=== PATIENT | female | born 1940 | race Caucasian/White ===

== ENCOUNTER → 2017-03-01 | Outpatient (CLI) | payer MEDICARE, OTHER ==
[~2017-03-01] MED LIST: ASPIRIN EC81 MG PO; CALTRATE 600 WI1 TAB PO; CYMBALTA60 MG PO; LEVOTHROID (S100 MCG PO; LOPRESSOR50 MG PO; METAMUCIL CAPSU1 CAP PO; MIRALAX17 GM PO; NEXIUM40 MG PO; PLAQUENIL200 M1 PO; THERA-VITE W/ B1 TAB PO; TYLENOL EXTRA500 MG PO; ULTRAM50 MG PO; VITAMIN D1000 UNIT PO; ZOCOR10 MG PO
--- NOTE | ~2017-03-01 | PUL ---
[facility] 77 Y [address] ROOM: [place] [address] LOCATION: [facility] [place] ADMIT DATE: 03/01/2017 Pulmonary DISCHARGE DATE: FAMILY PHYSICIAN: Lito Lopez MD ATTENDING PHYSICIAN: Lito Lopez NAME OF PROCEDURE: Sleep study DATE OF PROCEDURE: 03/01/17 TECH: SHEREE Hwang TEST #: [facility] [place] [id number] MEDICAL HISTORY: The patient is a 77-year-old with a history of daytime sleepiness and snoring. SLEEP STAGE SUMMARY: The patient was studied for 497 minutes of which she slept 427 minutes. She fell asleep in 17 minutes and slept for 86% of the night. RESPIRATORY SUMMARY: Oxygen saturations ranged from 83-93%. There were 409 apneas and 28 hypopneas for an apnea/hypopnea index severely elevated at 61 events per hour. The majority of the events occurred too late in the study to allow for initiation of CPAP. EKG SUMMARY: No dysrhythmias were noted. LIMB MOVEMENT SUMMARY: Occasional periodic limb movements were noted. Clinical significance is unclear in the setting of severe obstructive sleep apnea. ASSESSMENT: Severe obstructive sleep apnea. PLAN: Would consider a repeat study for initiation and titration of CPAP. Patient will receive results from the ordering provider. RENITA ANNE MD [facility]/ PATIENT'S NAME: BRIGIDO DODSON [facility] AGE: 77 Y [address] ROOM: [place] [address] LOCATION: [facility] ADMIT DATE: 03/01/2017 Pulmonary DISCHARGE DATE: FAMILY PHYSICIAN: Lito Lopez MD ATTENDING PHYSICIAN: Lito Lopez /[id number] dtt: 03/12/17 1017 , Renita Anne dtd: 03/04/17 1305
== END | disposition disaster alternative care site (69) ==
LOC: GSLP 20:16
DX: G47.34 Idiopathic sleep related nonobstructive alveolar hypoventilation (principal); G47.33 Obstructive sleep apnea (adult) (pediatric)

== ENCOUNTER → 2017-03-24 | Outpatient (CLI) | payer MEDICARE, OTHER ==
--- NOTE | ~2017-03-24 | PUL ---
PATIENT'S NAME: BRIGIDO DODSON [facility] AGE: 77 Y [address] ROOM: [place] [address] [facility] ADMIT DATE: 03/24/2017 Pulmonary DISCHARGE DATE: FAMILY PHYSICIAN: Lito Lopez MD ATTENDING PHYSICIAN: Lito Lopez NAME OF PROCEDURE: Sleep Study PROCEDURE DATE: 03/24/17 TECH: SHEREE Hwang TEST #: [facility]# [id number] TECHNICAL PARAMETERS: The patient was studied using [employer] 10/20 measuring system. While the patient was studied, there was continuous monitoring of EEG (8 leads), EOG (2 leads), EKG (3 leads), submental EMG (3 leads), tibial (4 leads), respiratory inductive plethysmography (RIP) for thoracic and abdominal effort, oral and nasal airflow with a thermocouple and pressure transducer, and oximetry. The commercial maintenance technician also performed visual and auditory observations noting things like body position, patient's status, breath sounds, artifact, snoring level and patient comments. Continuous sound was monitored using a 2-way speaker system and video monitoring was performed using an infrared camera. Review of the entire study was performed epoch by epoch utilizing a single epoch and multiple epoch capability sleep system. MEDICAL HISTORY: The patient is a 77-year-old woman with daytime sleepiness and snoring. SLEEP STAGE SUMMARY: The patient was studied for 453 minutes of which she slept 380 minutes. She fell asleep in 7 minutes and slept for 84% of the night. Sleep architecture revealed a decline in slow wave and REM sleep. RESPIRATORY SUMMARY: Oxygen saturations ranged from 89-92%. This study was done to titrate CPAP which was started at 6 cm and titrated to 12 cm with excellent control of the respiratory events. EKG SUMMARY: Occasional PVCs were noted. LIMB MOVEMENT SUMMARY: Frequent periodic limb movements were noted. Limb movement index was 78 events per hour. Limb movement with arousal index was 8.4 events per hour. These are probably clinically relevant. IMPRESSION: 1. Obstructive sleep apnea responsive to CPAP at 12 cm. PATIENT'S NAME: BRIGIDO DODSON [facility] AGE: 77 Y [address] ROOM: [place] [address] [facility] ADMIT DATE: 03/24/2017 Pulmonary DISCHARGE DATE: FAMILY PHYSICIAN: Lito Lopez MD ATTENDING PHYSICIAN: Lito Lopez 2. Probable periodic limb movement disorder. PLAN: The patient will receive results from the ordering provider. RENITA ANNE MD [facility] /[id number] dtt: 04/12/17 0739 , Renita Anne. dtd: 03/26/17 1258
== END | disposition disaster alternative care site (69) ==
LOC: GSLP 20:34
DX: G47.33 Obstructive sleep apnea (adult) (pediatric) (principal)